=== PATIENT | male | born 1970 | race Caucasian/White ===

== ENCOUNTER 2017-02-20 13:30 | Emergency (ER) | payer OTHER, MEDICAID ==
[2017-02-20] MEDS ORDERED: CLINDAMYCIN 600 MG/DEXTROSE 50 ML IV ONE (13:44)
[2017-02-20] MEDS ORDERED: NS 1,000 ML IV ONE ×2 (13:44→15:09)
[2017-02-20] MEDS ORDERED: KETOROLAC 30 MG/1 ML SDV IVP ONE (13:45)
--- NOTE | 2017-02-20 13:51 | EDPHY ---
H & P Stated Complaint: R tooth pain x 1 week; facial/orbital swelling since yesterday Time Seen by Provider: 02/20/17 13:38 HPI/ROS: CHIEF COMPLAINT: Facial swelling History by patient HISTORY OF PRESENT ILLNESS: 47-year-old man with a history of seizure disorder on Depakote and prior meth use presents complaining of right-sided facial pain and swelling. He patient states that he noted he had some pain 1 of his upper molars and then yesterday someone told him his head looks weird and now today it is all swollen and he was referred here from an urgent care because of concern for abscess. Patient denies any fever but has had some nausea. He denies any drainage. He denies any eye pain. He chews tobacco but does not smoke cigarettes. REVIEW OF SYSTEMS: As in HPI, and all other systems reviewed and are negative Source: Patient - Personal History Current Tetanus/Diphtheria Vaccine: Yes - Medical/Surgical History Hx Asthma: No Hx Chronic Respiratory Disease: No Hx Diabetes: No Hx Cardiac Disease: No Hx Renal Disease: No Hx Cirrhosis: No Hx Alcoholism: No Hx HIV/AIDS: No Hx Splenectomy or Spleen Trauma: No Other PMH: epilepsy. meth use - Family History Significant Family History: No pertinent family hx - Social History Smoking Status: Never smoked - Physical Exam Exam: General Appearance: Alert and somewhat uncomfortable, did show Head: normocephalic, marked right-sided face swelling Eyes: Pupils equal and round no injection. Extraocular movements intact without pain Face: Positive diffuse pain and swelling from right upper lip to right lower eyelid with redness, + tenderness, no fluctuance or drainage Ears: TM clear bilat OP: mucus membranes moist, poor dentition, positive swollen gingivae right upper gums Neck: no meningismus, bilateral right greater than left cervical nodes Respiratory: Chest is nontender, lungs are clear to auscultation. Cardiac: regular rate and rhythm. Gastrointestinal: Abdomen is soft and nontender, no masses, bowel sounds normal. Musculoskeletal: Neck is supple and nontender. Extremities have full range of motion and are nontender. Skin: No rashes or lesions. Constitutional: Initial Vital Signs Temperature (C) 37.0 C 02/20/17 13:40 Heart Rate 103 H 02/20/17 13:40 Respiratory Rate 20 02/20/17 13:40 Blood Pressure 150/97 H 02/20/17 13:40 O2 Sat (%) 98 02/20/17 13:40 Allergies/Adverse Reactions: No Known Allergies Allergy (Verified 02/20/17 13:40) Home Medications: Medication Instructions Recorded Nem[place] 02/20/17 Medical Decision Making ED Course/Re-evaluation: 47-year-old man presents with right-sided face pain and swelling and poor dentition consistent with acute facial cellulitis due to tooth infection. Patient was started on IV clindamycin and a CT scan is obtained. He was given IV Toradol for his pain with good relief. He was given a L of normal saline. CT scan results are pending at time of dictation at this was an abscess he will need eating and teeth consult. He will need ongoing IV antibiotics to the extent of his infection and I discussed the case with Dr. Armando at [facility] who accepts the patient in transfer. - Data Points Laboratory Results: Laboratory Results 02/20/17 13:52 02/20/17 13:52 02/20/17 02/20/17 13:52 13:52 WBC 8.39 10^3/uL 10^3/uL (3.80-9.50) RBC 4.38 10^6/uL L 10^6/uL (4.40-6.38) Hgb 13.5 g/dL L g/dL (13.7-17.5) Hct 39.1 % L % (40.0-51.0) MCV 89.3 fL fL (81.5-99.8) MCH 30.8 pg pg (27.9-34.1) MCHC 34.5 g/dL g/dL (32.4-36.7) RDW 13.2 % % (11.5-15.2) Plt Count 188 10^3/uL 10^3/uL (150-400) MPV 9.3 fL fL (8.7-11.7) Neut % (Auto) 67.4 % % (39.3-74.2) Lymph % (Auto) 16.1 % % (15.0-45.0) Slope % (Auto) 14.3 % H % (4.5-13.0) Eos % (Auto) 1.4 % % (0.6-7.6) Baso % (Auto) 0.6 % % (0.3-1.7) Nucleat RBC Rel Count 0.0 % % (0.0-0.2) Absolute Neuts (auto) 5.65 10^3/uL 10^3/uL (1.70-6.50) Absolute Lymphs (auto) 1.35 10^3/uL 10^3/uL (1.00-3.00) Absolute Monos (auto) 1.20 10^3/uL H 10^3/uL (0.30-0.80) Absolute Eos (auto) 0.12 10^3/uL 10^3/uL (0.03-0.40) Absolute Basos (auto) 0.05 10^3/uL 10^3/uL (0.02-0.10) Absolute Nucleated RBC 0.00 10^3/uL 10^3/uL (0-0.01) Immature Gran % 0.2 % % (0.0-1.1) Immature Gran # 0.02 10^3/uL 10^3/uL (0.00-0.10) Sodium 138 mEq/L mEq/L (134-144) Potassium 4.2 mEq/L mEq/L (3.5-5.2) Chloride 103 mEq/L mEq/L (97-110) Carbon Dioxide 24 mEq/l mEq/l (22-31) Anion Gap 11 mEq/L mEq/L (8-16) BUN 21 mg/dL mg/dL (7-23) Creatinine 0.7 mg/dL mg/dL (0.7-1.3) Estimated GFR > 60 Glucose 105 mg/dL H mg/dL (70-100) Calcium 8.6 mg/dL mg/dL (8.5-10.4) Medications Given: Discontinued Medications Clindamycin Phosphate/Dextrose (Cleocin 600 Mg (Premix)) 50 mls @ 100 mls/hr IV EDNOW ONE PRN Reason: Protocol Stop: 02/20/17 14:13 Last Admin: 02/20/17 14:04 Dose: 50 mls Sodium Chloride (Ns) 1,000 mls @ 0 mls/hr IV ONCE ONE PRN Reason: Wide Open Stop: 02/20/17 13:45 Last Admin: 02/20/17 13:58 Dose: 1,000 mls Ketorolac Tromethamine (Toradol) 15 mg IVP EDNOW ONE Stop: 02/20/17 13:46 Last Admin: 02/20/17 13:57 Dose: 15 mg Departure - Departure Disposition: [facility] Acute Clinical Impression: Cellulitis diffuse, face Condition: Fair
[2017-02-20 13:59] LABS: % IMMATURE GRANULYOCYTES 0.2 % (0.0-1.1); ABSOLUTE IMMATURE GRANULOCYTES 0.02 10^3/uL (0.00-0.10); ADD DIFF? NO; ADD MORPH? NO; ADD SCAN? NO; ATYPICAL LYMPHOCYTE FLAG 0 (0-99); FRAGMENT RBC FLAG 0 (0-99); HEMATOCRIT 39.1 % (40.0-51.0); HEMOGLOBIN 13.5 g/dL (13.7-17.5); LEFT SHIFT FLG 0 (0-99); LIPEMIA HEMOLYSIS FLAG 90 (0-99); MEAN CELL HEMOGLOBIN 30.8 pg (27.9-34.1); MEAN CELL HEMOGLOBIN CONCENTR. 34.5 g/dL (32.4-36.7); MEAN CELL VOLUME 89.3 fL (81.5-99.8); MEAN PLATELET VOLUME 9.3 fL (8.7-11.7); PLATELET CLUMPS FLAG 0 (0-99); PLATELET COUNT 188 10^3/uL (150-400); RED BLOOD CELL COUNT 4.38 10^6/uL (4.40-6.38); RED CELL DISTRIBUTION WIDTH 13.2 % (11.5-15.2)
[2017-02-20] MEDS ORDERED: IOPAMIDOL (ISOVUE-300) 100 ML BTL IV ONE (14:02)
[2017-02-20 14:14] LABS: ANION GAP 11 mEq/L (8-16); CALCIUM 8.6 mg/dL (8.5-10.4); CARBON DIOXIDE 24 mEq/l (22-31); CHLORIDE 103 mEq/L (97-110); CREATININE 0.7 mg/dL (0.7-1.3); GLOMERULAR FILTRATION RATE > 60; GLUCOSE 105 mg/dL (70-100); POTASSIUM 4.2 mEq/L (3.5-5.2); SODIUM 138 mEq/L (134-144)
[2017-02-20 15:59] VITALS: BP 131/87; PULSE 75; RESP 18; TEMP 97.5; O2SAT 96
== END 2017-02-20 16:05 | disposition home or self-care (01) ==
LOC: CED 13:30 → UNDOADMOB 14:58 → CEDHOLD 14:58
DX: L03.211 Cellulitis of face (principal); K04.7 Periapical abscess without sinus
CPT/HCPCS: 70487; 96361; 96365; 96375; 99285; J1885; Q9967; 80048-PO; 85025-PO